=== PATIENT | male | born 1995 | race Caucasian/White ===

== ENCOUNTER 2020-05-18 13:36 | Emergency (ER) | payer MEDICAID, SELFPAY ==
[~2020-05-18] VITALS: Ht 154.9 cm; Wt 127.0 kg
[2020-05-18 13:45] VITALS: BP 123/84; Ht 154.9 cm; Wt 127.0 kg
== END 2020-05-18 14:42 | disposition home or self-care (01) ==
LOC: ED 13:36
DX: U07.1 COVID-19 (principal); B34.9 Viral infection, unspecified
CPT/HCPCS: U0003